=== PATIENT | female | born 1990 | race Caucasian/White ===

== ENCOUNTER 2024-04-29 18:32 | Emergency (ER) | payer OTHER | END 2024-04-29 21:02 | disposition left against medical advice (07) | LOC: ER 18:37 | DX: R07.9 Chest pain, unspecified (principal); R06.02 Shortness of breath; R94.31 Abnormal electrocardiogram [ECG] [EKG]; Z53.21 Procedure and treatment not carried out due to patient leaving prior to being seen by health care provider ==